=== PATIENT | male | born 1990 | race Caucasian/White ===

== ENCOUNTER 2024-01-16 14:38 | Inpatient (IN) | payer MEDICAID, SELFPAY ==
--- NOTE | ~2024-01-16 | XR_ITS ---
EXAMINATION: XR HAND, LEFT CLINICAL INFORMATION: Infected third finger COMPARISON: None available. TECHNIQUE: PA, lateral, and oblique views of the left hand. FINDINGS: Bone alignment is normal. No acute fracture, dislocation or x-ray evidence of osteomyelitis. Question evidence of old trauma of the distal radial metaphysis. Joint spaces are normal. There is diffuse soft tissue swelling of the third finger. No soft tissue foreign body or abnormal air collection seen. XR/XR hand LT 2V IMPRESSION: Soft tissue swelling of the third finger.
[2024-01-16 15:19] VITALS: BP 138/96; PULSE 74; RESP 16; TEMP 36.7; O2SAT 100; BMI 25.2
--- NOTE | 2024-01-16 15:20 | ED.GENADULT ---
HPI - General Adult General Chief complaint: Extremity Problem Stated complaint: Left Hand/middle finger infection Time Seen by Provider: 01/16/24 18:11 Source: patient Mode of arrival: ambulatory Limitations: no limitations History of Present Illness HPI narrative: 33-year-old male presents emergency department for evaluation of pain and swelling of his left middle finger and hand. The patient states that he does bite his nails and 3 days ago he noted swelling of the middle finger. He states that the swelling and pain is now spread to his hand. Patient states that 10 years ago he did have a similar infection of the left hand secondary to a MRSA infection. The patient states that he has had chills but no fever. He is felt weak and fatigued. He has had nausea with no vomiting. He states the pain in his middle finger is 10/10. The patient states he did pick pimples that around the back of his hand and pimples on his face as well. He denies injection drug use. Related Data Allergies Allergy/AdvReac Type Severity Reaction Status Date / Time No Known Allergies Allergy Verified 01/16/24 15:22 Review of Systems Review of Systems: Yes all other systems are reviewed and are negative [facility] Past Medical History [facility] Narrative: Past medical history: MRSA infection of the left hand 10 years prior, right thumb injury requiring surgical repair, multiple back surgeries L5-S1. Social history: He states that he vapes tobacco products. He does drink alcohol occasionally. He denies drug use. Social History Social History Smoked in Last 30 Days: No Use of substances other than those prescribed or required for medical reasons: No Advance Directives: No Advance Directives Information Provided: No Do you have a plan to hurt others: No Plan Physical Exam ED Vital Signs: Vital Signs - 24 hr 01/16/24 15:19 01/16/24 17:18 01/16/24 18:18 Temperature 98.1 F 98.1 F Pulse Rate 74 73 Respiratory Rate 16 16 20 Blood Pressure 138/96 H 144/102 H Pulse Oximetry 100 100 Oxygen Delivery Method Room Air Room Air 01/16/24 21:52 Temperature 98.0 F Pulse Rate 76 Respiratory Rate 18 Blood Pressure 135/86 Pulse Oximetry 98 Oxygen Delivery Method Room Air BMI result Body Mass Index 25.2 Vital signs were normal Exam: General: Awake, alert in no distress Head: Normocephalic, atraumatic, patient has several lesions on his face which look like skin picking EENT: PERRL, Lids normal, sclera normal, conjunctiva normal, nose normal , ears normal, throat without erythema or exudates Neck: Supple, no adenopathy Lung: breath sounds symmetric, no wheezing, rales or rhonchi Chest: symmetric movement, nontender Heart: regular rate and rhythm, normal S1, S2 no murmurs or rubs Abdomen: soft, non-tender, nondistended, normal bowel sounds Back: no vertebral tenderness, no CVAT Extremities: Patient has significant swelling of the left middle finger and finger pad concerning for possible felon, patient also has erythema increased warmth to the dorsal aspect of the hand with several lesions that look like skin picking. Neuro: Awake, alert, oriented, normal speech, cranial nerves intact, moves all extremities symmetrically Psych: Pleasant, cooperative Course Course Course Narrative: Patient is a 33-year-old male left-hand dominant who presents to the emergency department for evaluation. He reports hx MRSA, L middle finger requiring I&D reportedly due to biting nails that presented similarly to his hand currently. This is approximately 10 years ago. Reports reoccurrence of pain swelling to the left middle finger over the past week extending into the hand. Physical exam: Swelling to the dorsum of the left hand extending to the 3rd phalanx, has erythema surrounding the nail bed, discoloration to the distal tip and beneath the nail yellow/green. Scab/abrasions over the dorsum of the left hand, reports picking and wounds initially from injury with a door?. Denies recreational drug or alcohol usage. Plan: Labs, XR Medications Administered Discontinued Medications Generic Name Dose Route Start Last Admin Trade Name Merly PRN Reason Stop Dose Admin Acetaminophen 975 mg 01/16/24 20:20 01/16/24 20:24 Acetaminophen 325 Mg Tablet PO 01/16/24 20:21 975 mg ONCE ONE Administration Sodium Chloride 1,000 mls @ 999 mls/hr 01/16/24 18:12 01/16/24 19:32 Ns IV 01/16/24 19:12 Infused .Q1H1M STA Infusion Piperacillin Sod/Tazobactam 100 mls @ 200 mls/hr 01/16/24 19:02 01/16/24 20:17 Sod 4.5 gm/ Sodium Chloride IV 01/16/24 19:31 Infused ONCE ONE Infusion Vancomycin HCl 2,000 mg in 500 mls @ 250 mls/hr 01/16/24 19:02 01/16/24 20:20 Vancomycin/Ns IV 01/16/24 21:01 250 mls/hr ONCE ONE Administration Ketorolac Tromethamine 15 mg 01/16/24 18:12 01/16/24 18:17 Ketorolac Tromethamine 15 Mg/Ml Vial IVPUSH 01/16/24 18:13 15 mg ONCE STA Administration Morphine Sulfate 4 mg 01/16/24 18:12 01/16/24 18:18 Morphine Sulfate 4 Mg/Ml Cartridge IVPUSH 01/16/24 18:13 4 mg ONCE STA Administration Protocol Morphine Sulfate 4 mg 01/16/24 19:38 01/16/24 19:45 Morphine Sulfate 4 Mg/Ml Cartridge IVPUSH 01/16/24 19:39 4 mg ONCE STA Administration Protocol Medical Decision Making Medical Decision Making MDM Narrative: 33-year-old male presents emergency department for evaluation of pain and swelling of his left middle finger and hand. The patient states that he does bite his nails and 3 days ago he noted swelling of the middle finger. He states that the swelling and pain is now spread to his hand. Patient states that 10 years ago he did have a similar infection of the left hand secondary to a MRSA infection. The patient states that he has had chills but no fever. He is felt weak and fatigued. He has had nausea with no vomiting. He states the pain in his middle finger is 10/10. The patient states he did pick pimples that around the back of his hand and pimples on his face as well. He denies injection drug use. Vital signs were normal . Physical examination is concerning for cellulitis of the hand and fell onto the left middle finger Differential diagnosis: ?Includes but is not limited to felon, cellulitis of the hand, abscess of the hand, anemia, electrolyte abnormalities Following evaluation was ordered: CBC, CMP, CRP, ESR, blood cultures x2 Patient was initially treated with the following: Piperacillin 4.5 g IV, vancomycin 2000 mg IV, Toradol 15 mg IV, morphine 4 mg IV x2, acetaminophen 975 mg orally, left hand x-rays Course: 21:41 My independent interpretation patient's laboratory evaluation as follows: Elevated WBC 21608 with a normal differential. ESR was normal at 7. CRP slightly elevated at 0.77. CMP normal. Plain x-rays of the hand did not reveal any osteomyelitis, there is soft tissue swelling noted of the middle finger. 22:25 I did discuss the patient's presentation over tiger text with the orthopedic physician field administrative assistant, Daniella Santamaria who recommended admission to the hospitalist service for IV antibiotics and orthopedic consult in the morning I did discuss the patient's presentation over tiger text with the covering hospitalist, Dr. Durán and she will admit the patient for further management The patient continues to have persistent pain in his left hand and middle finger. He was ordered to get Dilaudid 1 mg IV. Admission/Observation Consideration of admission/observation: Escalation of care including admission/observation considered Consult Healthcare Provider Management of the patient was discussed with: Hospitalist and Band Splicer (Orthopedic physician field administrative assistant, Daniella Marin) Lab Data MDM Lab Attestation statement: I reviewed the patient's lab results. 01/16/24 16:23 01/16/24 16:23 Labs: Lab Results 01/16/24 Range/Units 16:23 WBC 11.7 H (4.8-10.8) X10*3/uL RBC 4.74 (4.60-5.80) X10*6/uL Hgb 13.9 L (14.0-18.0) g/dl Hct 39.8 L (42.0-52.0) % MCV 84.0 (80.0-98.0) fL MCH 29.3 (27.0-33.0) pg MCHC 34.9 (31.0-36.0) g/dl RDW 12.4 (11.0-16.0) % Plt Count 233 (160-400) X10*3/uL MPV 9.0 L (9.4-12.4) fL Immature Gran % (Auto) 0.3 (0.0-0.4) % Neut % (Auto) 69.0 (45-73) % Lymph % (Auto) 21.8 (20-40) % [place] % (Auto) 6.7 (2-11) % Eos % (Auto) 1.9 (0-4) % Baso % (Auto) 0.3 (0-2) % Lymph # (Auto) 2.5 (1.2-4.9) X10*3/uL [place] # (Auto) 0.8 (0.1-1.2) X10*3/uL Eos # (Auto) 0.2 (0.0-0.4) X10*3/uL Baso # (Auto) 0.0 (0.0-0.2) X10*3/uL Abs Immat Gran (auto) 0.04 H (0.00-0.03) X10*3/uL Absolute Neuts (auto) 8.0 (2.0-8.3) x10*3/uL Absolute Nucleated RBC 0.000 (0.0-0.012) X10*3/uL Nucleated RBC % (auto) 0.0 (0.0-0.2) /100WBC ESR 7 (0-15) MM/HR Sodium 143 (135-145) mmol/L Potassium 3.8 (3.3-5.1) mmol/L Chloride 109 H (96-108) mmol/L Carbon Dioxide 22 (22-29) mmol/L Anion Gap 16 (12-20) BUN 8 L (9-16) mg/dL Creatinine 0.67 (0.5-1.4) mg/dL Estim Creat Clear Calc 156.8 Estimated GFR > 60 Random Glucose 114 (60-115) mg/dL Calcium 9.3 (8.4-10.2) mg/dL Total Bilirubin 0.2 (0.0-1.0) mg/dL AST 13 (5-37) U/L ALT 12 (0-40) U/L Alkaline Phosphatase 63 (39-117) U/L C-Reactive Protein 0.77 H (< or = 0.50) mg/dL Total Protein 6.3 L (6.5-8.0) g/dL Albumin 3.7 (3.5-5.0) g/dL Independent Interpretation I performed an independent interpretation of an: Plain X-Ray Interpretation: My independent interpretation patient's left hand x-ray is as follows: Soft tissue swelling noted that 3rd finger, no osteomyelitis Radiology Impression Discussion of test interpretation with radiology: I have reviewed the radiologist's reading. Radiologist Impression: XR hand LT 2V IMPRESSION: Soft tissue swelling of the third finger. Dictated By: Patria Khalil MD Independent Historian Clinical information obtained from an independent historian. History obtained from or confirmed by: Other (Fiancee) Chronic Conditions Patient?s care impacted by: Other (MRSA infection in the past) Discharge Plan Discharge Patient Disposition: Admitted As Inpatient Print Language: Czech
[2024-01-16 16:28] LABS: MANUAL DIFF FLAG NO
[2024-01-16 16:30] LABS: Basophils Percent Auto 0.3 % (0-2); Eosinophils Absolute Auto 0.2 X10*3/uL (0.0-0.4); Eosinophils Percent Auto 1.9 % (0-4); Hematocrit 39.8 % (42.0-52.0); Hemoglobin 13.9 g/dl (14.0-18.0); Imm Gran Abs Auto 0.04 X10*3/uL (0.00-0.03); Imm Gran Pct Auto 0.3 % (0.0-0.4); Lymphocytes Absolute Auto 2.5 X10*3/uL (1.2-4.9); Lymphocytes Percent Auto 21.8 % (20-40); Mean Corpuscular HGB Conc 34.9 g/dl (31.0-36.0); Mean Corpuscular Hemoglobin 29.3 pg (27.0-33.0); Monocytes Absolute Auto 0.8 X10*3/uL (0.1-1.2); Monocytes Percent Auto 6.7 % (2-11); Platelet Count 233 X10*3/uL (160-400); Red Blood Count 4.74 X10*6/uL (4.60-5.80); Red Cell Distribution Width 12.4 % (11.0-16.0); White Blood Count 11.7 X10*3/uL (4.8-10.8)
[2024-01-16 16:43] LABS: Alanine Aminotransferase 12 U/L (0-40); Albumin Level 3.7 g/dL (3.5-5.0); Alkaline Phosphatase 63 U/L (39-117); Anion Gap 16 (12-20); Aspartate Amino Transferase 13 U/L (5-37); Bilirubin Total 0.2 mg/dL (0.0-1.0); Blood Urea Nitrogen 8 mg/dL (9-16); C Reactive Protein 0.77 mg/dL (< or = 0.50); Calcium 9.3 mg/dL (8.4-10.2); Carbon Dioxide 22 mmol/L (22-29); Chloride 109 mmol/L (96-108); Creatinine Clr Calc Pharmacy 156.8; Estimated Glomerular Filt Rate > 60; Glucose Random 114 mg/dL (60-115); Potassium 3.8 mmol/L (3.3-5.1); Sodium 143 mmol/L (135-145); Total Protein 6.3 g/dL (6.5-8.0)
[2024-01-16 17:18] VITALS: BP 144/102; PULSE 73; RESP 16; TEMP 36.7; O2SAT 100
--- NOTE | 2024-01-16 17:21 | PC.NURSE ---
Pt presents to ED from home. Reports swelling pain and redness starting at the left middle finger radiating up his hand. Symptoms X2 days, worsening significantly. Pt does bite his nails, has hx of MRSA infection in that hand. Pt reports pain is 10/10 in left hand. Left hand noted to be swollen and red, area of blue/black around finger nail of middle finger. Pt denies nausea, vomiting, SOB, CP. Does report chills and diarrhea. Alert and oriented, breathing even and unlabored, skin warm and dry. VSS.
[2024-01-16 17:23] LABS: Erythrocyte Sedimentation Rate 7 MM/HR (0-15)
[2024-01-16] MEDS: Ketorolac Tromethamine 15 MG/ML VIAL IVPUSH (18:17)
[2024-01-16 18:18] VITALS: RESP 20
[2024-01-16] MEDS: Morphine Sulfate 4 MG/ML CARTRIDGE IVPUSH ×2 (18:18→19:45)
[2024-01-16] MEDS: 0.9 % Sodium Chloride 1,000 ML 999 ML IV (18:22)
--- NOTE | 2024-01-16 18:36 | PC.NURSE ---
Pt medicated per MAR for significant pain, pt was noted to be in obvious discomfort. Pt now resting and feeling better after pain meds.
[2024-01-16] MEDS: Piperacillin Sodium/Tazobactam 4.5 GM in 0.9 % Sodium Chloride 100 ML IV (19:42)
[2024-01-16] MEDS: vancomycin/NS 2,000 MG/500 ML PLAST..BAG 250 MG IV (20:20)
[2024-01-16] MEDS: Acetaminophen 325 MG TABLET 975 MG PO (20:24)
[2024-01-16 21:52] VITALS: BP 135/86; PULSE 76; RESP 18; TEMP 36.7; O2SAT 98
--- NOTE | 2024-01-16 22:58 | P.HPHOSP_ITS ---
History of Present Illness Date of Service: 01/16/24 Attending physician on admission: Lizeth Aquino Chief Complaint: Left 3rd finger pain and swelling Gurdeep Acuña is a 33 years old man presents to the ED complaining of 3 days history of worsening swelling to his left 3rd finger associated with left hand swelling and pain. He does bite his nails and was picking a pimples to the back aspect of his left hand. Denies associated chills, fever or nausea. He had a similar episode about 10 years ago requiring IV antibiotics. The infection was related to MRSA. He did not report any headache, dizziness or generalized weakness. He did not report any acute cardiopulmonary, gastrointestinal or genitourinary symptoms. Denied alcohol abuse or illicit drug use. In the ED, he was found to have normal vital signs. Blood workup showed within leukocytosis of 11.7. CRP is elevated, 0.77. Hemoglobin and platelets are basically normal. There are no significant electrolyte imbalances. Renal function is normal as well as LFTs. Left hand x-ray showed soft tissue swelling around the left 3rd digit. ED tx: Morphine 8 mg IV (total) Jorden 50 mg IV, vancomycin 2 g IV, Zosyn 4.5 mg IV, acetaminophen 975 mg PO. Review of Systems 2 Review of Systems: All 12 systems were reviewed and normal except as noted in HPI. PMFSH Social History Smoked in Last 30 Days: No Use of substances other than those prescribed or required for medical reasons: No Advance Directives: No Advance Directives Information Provided: No Do you have a plan to hurt others: No Plan Meds Allergies Allergy/AdvReac Type Severity Reaction Status Date / Time No Known Allergies Allergy Verified 01/16/24 15:22 Active Medications: Current Medications Acetaminophen (Acetaminophen 325 Mg Tablet) 975 mg PO Q6H PRN PRN Reason: mild pain, headache or fever Hydromorphone HCl (Hydromorphone Hcl 1 Mg/Ml Syringe) 1 mg IVPUSH Q4H PRN; Protocol PRN Reason: Pain, Severe (Pain Scale 7-10) Ketorolac Tromethamine (Ketorolac Tromethamine 30 Mg/Ml Vial) 30 mg IVPUSH Q8H [facility]INE Stop: 01/17/24 07:01 Magnesium Hydroxide (Milk Of Magnesia 30 Ml Oral.Susp) 30 ml PO DAILY PRN PRN Reason: Constipation Melatonin (Melatonin 3 Mg Tablet) 6 mg PO BEDTIME PRN PRN Reason: Insomnia Oxycodone HCl (Oxycodone Hcl Immed Release 5 Mg Tablet) 5 mg PO Q6H PRN PRN Reason: Pain, Moderate(Pain Scale 4-6) Pharmacy Consult (Consult Rx Vancomycin Dosing) 1 each MISCELLANE DAILY PRN PRN Reason: Consult order Senna (Sennosides 8.6 Mg Tablet) 17.2 mg PO BEDTIME PRN PRN Reason: Constipation Sodium Chloride (0.9 % Sodium Chloride Flush 3 Ml Syringe) 3 ml IVFLUSH QSHIFT [facility] Physical Exam 2 Vital Signs and Narrative: Vital Signs: Last Vital Signs Temp 98.0 F 01/16/24 21:52 Pulse 76 01/16/24 21:52 Resp 18 01/16/24 21:52 BP 135/86 01/16/24 21:52 Pulse Ox 98 01/16/24 21:52 O2 Del Method Room Air 01/16/24 21:52 BMI result Body Mass Index 25.2 Constitutional - Awake and Alert, No apparent distress. Girlfriend at bedside. HEENT - pupils equally round. Normal sclerae. Abrasion noted over left eyebrow. Heart - S1S2, RRR, No edema Lungs - Normal lung expansion, Normal respiratory effort, No respiratory distress, CTA bilaterally Gastrointestinal - deferred. 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 Skin - Warm/Dry Neurological - Alert & oriented x3. No focal weakness grossly noted. Normal speech. Psychological - Appropriate affect Results Labs 01/16/24 16:23 01/16/24 16:23 Labs: Laboratory Results - last 24 hr 01/16/24 16:23 MCV 84.0 MCH 29.3 MCHC 34.9 RDW 12.4 Plt Count 233 MPV 9.0 L Immature Gran % (Auto) 0.3 Neut % (Auto) 69.0 Lymph % (Auto) 21.8 [place] % (Auto) 6.7 Eos % (Auto) 1.9 Baso % (Auto) 0.3 Lymph # (Auto) 2.5 [place] # (Auto) 0.8 Eos # (Auto) 0.2 Baso # (Auto) 0.0 Abs Immat Gran (auto) 0.04 H Absolute Neuts (auto) 8.0 Absolute Nucleated RBC 0.000 Nucleated RBC % (auto) 0.0 ESR 7 Anion Gap 16 Estim Creat Clear Calc 156.8 Estimated GFR > 60 Random Glucose 114 Calcium 9.3 Total Bilirubin 0.2 AST 13 ALT 12 Alkaline Phosphatase 63 C-Reactive Protein 0.77 H Total Protein 6.3 L Albumin 3.7 Imaging Radiologist's Impressions: Impressions Hand X-Ray 01/16/24 15:37 IMPRESSION: Soft tissue swelling of the third finger. Assessment and Plan (1) Cellulitis of left middle finger: Status: Acute (2) Paronychia of finger: Qualifiers: Laterality: left Qualified Code(s): L03.012 - Cellulitis of left finger Status: Acute Plan Gurdeep Acuña is a 33 years old man admitted with: * Left 3rd finger paronychia associated with cellulitis extending to the dorsum of the left hand, no sepsis criteria. Admit to hospitalist service. Continue empiric IV antibiotic therapy with doxycycline. Apply triple antibiotic bid. Elevate extremity. Apply ice. Patient educated to avoid nail biting. Pain control with Dilaudid or oxycodone as needed. Toradol 30 mg q8h X2. MRSA nasal screen. Ortho consult (contacted by ED). 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 Patient will also need evaluation by Orthopedic surgery for possible drainage. Quality Stroke Does the patient have a stroke diagnosis?: No VTE Prior VTE?: No VTE Risk Level:: Medical - moderate - high VTE Device Contraindication: Treatment Not Indicated VTE Drug Contraindication: Treatment Not Indicated
[2024-01-16] MEDS: Ketorolac Tromethamine 30 MG/ML VIAL IVPUSH (23:31)
[2024-01-16] MEDS: HYDROmorphone HCl 1 MG/ML SYRINGE IVPUSH (23:32)
[2024-01-17] MEDS: 0.9 % Sodium Chloride Flush 3 ML SYRINGE IVFLUSH ×4 (01:40→20:46)
[2024-01-17] MEDS: HYDROmorphone HCl 1 MG/ML SYRINGE IVPUSH ×4 (03:27→21:00)
[2024-01-17 05:27] LABS: MANUAL DIFF FLAG NO
[2024-01-17 05:29] LABS: Basophils Absolute Auto 0.1 X10*3/uL (0.0-0.2); Basophils Percent Auto 0.4 % (0-2); Eosinophils Absolute Auto 0.3 X10*3/uL (0.0-0.4); Eosinophils Percent Auto 2.2 % (0-4); Hemoglobin 13.4 g/dl (14.0-18.0); Imm Gran Abs Auto 0.04 X10*3/uL (0.00-0.03); Imm Gran Pct Auto 0.3 % (0.0-0.4); Lymphocytes Absolute Auto 2.4 X10*3/uL (1.2-4.9); Lymphocytes Percent Auto 20.6 % (20-40); Mean Corpuscular HGB Conc 33.5 g/dl (31.0-36.0); Mean Corpuscular Hemoglobin 28.9 pg (27.0-33.0); Mean Corpuscular Volume 86.4 fL (80.0-98.0); Mean Platelet Volume 9.3 fL (9.4-12.4); Monocytes Percent Auto 8.6 % (2-11); Neutrophils Percent Auto 67.9 % (45-73); Platelet Count 229 X10*3/uL (160-400); Red Blood Count 4.63 X10*6/uL (4.60-5.80); Red Cell Distribution Width 12.6 % (11.0-16.0); White Blood Count 11.7 X10*3/uL (4.8-10.8)
[2024-01-17 05:46] LABS: Anion Gap 15 (12-20); Blood Urea Nitrogen 8 mg/dL (9-16); Calcium 8.7 mg/dL (8.4-10.2); Carbon Dioxide 23 mmol/L (22-29); Chloride 109 mmol/L (96-108); Creatinine Clr Calc Pharmacy 129.7; Estimated Glomerular Filt Rate > 60; Glucose Random 96 mg/dL (60-115); Sodium 143 mmol/L (135-145)
[2024-01-17] MEDS: oxyCODONE HCl Immed Release 5 MG TABLET PO (06:24)
[2024-01-17 08:03] VITALS: BP 131/68; PULSE 83; RESP 14; O2SAT 96
[2024-01-17 08:07] VITALS: BP 138/89; PULSE 107; RESP 18; TEMP 36.8; O2SAT 99
[2024-01-17] MEDS: Ketorolac Tromethamine 30 MG/ML VIAL IVPUSH (08:10)
[2024-01-17] MEDS: NeoMY/Polymyx/Bacit/Ointment 14 GM Tube TOPICAL ×2 (08:11→20:42)
--- NOTE | 2024-01-17 08:20 | HO.SKINPHOTO ---
Location: Category: Stage: Left third digit Length: Width: Depth: cm Location: Category: Stage: Length: Width: Depth: cm Location: Category: Stage: Length: Width: Depth: cm Location: Category: Stage: Length: Width: Depth: cm Location: Category: Stage: Length: Width: Depth: cm Location: Category: Stage: Length: Width: Depth: cm
--- NOTE | 2024-01-17 08:43 | HO.PM.IMPN ---
Subjective Subjective Date of Service: 01/17/24 Interval History: left hand-3rd finger paronychia /hand cellulitis Review of Systems has significant pain ,hand cellulitis seems similar no fevers Physical Exam Vital Signs: Vital Signs: Last Vital Signs Temp 98.3 F 01/17/24 08:07 Pulse 107 H 01/17/24 08:07 Resp 18 01/17/24 08:07 BP 138/89 01/17/24 08:07 Pulse Ox 99 01/17/24 08:07 O2 Del Method Room Air 01/17/24 08:07 BMI result Body Mass Index 25.2 Appearance: Alert.? Oriented X3.? . cvs: rrr, [id number] , no murmur res: clear to auscultation ,no rhonchii or wheezing abd: no rebound or guarding ,nt, bs present. ext pulses present , no cyanosis . left hand -pain /paronychia and skin changes similar neuro: axo3 , nonfocal. Objective Data Active Medications Acetaminophen (Acetaminophen 325 Mg Tablet) 975 mg PO Q6H PRN PRN Reason: mild pain, headache or fever Hydromorphone HCl (Hydromorphone Hcl 1 Mg/Ml Syringe) 1 mg IVPUSH Q4H PRN; Protocol PRN Reason: Pain, Severe (Pain Scale 7-10) Last Admin: 01/17/24 03:27 Dose: 1 mg Documented By: LORNA Doxycycline Hyclate 100 mg/ (Sodium Chloride) 250 mls @ 166.67 mls/hr IV Q12H [facility] Magnesium Hydroxide (Milk Of Magnesia 30 Ml Oral.Susp) 30 ml PO DAILY PRN PRN Reason: Constipation Melatonin (Melatonin 3 Mg Tablet) 6 mg PO BEDTIME PRN PRN Reason: Insomnia Neomycin/Polymyxin/Bacitracin (Neomy/Polymyx/Bacit/Ointment 14 Gm Tube) 1 gm TOPICAL BID DIVINE; Protocol Last Admin: 01/17/24 08:11 Dose: 1 gm Documented By: SHRUTHI Oxycodone HCl (Oxycodone Hcl Immed Release 5 Mg Tablet) 5 mg PO Q6H PRN PRN Reason: Pain, Moderate(Pain Scale 4-6) Last Admin: 01/17/24 06:24 Dose: 5 mg Documented By: LORNA Senna (Sennosides 8.6 Mg Tablet) 17.2 mg PO BEDTIME PRN PRN Reason: Constipation Sodium Chloride (0.9 % Sodium Chloride Flush 3 Ml Syringe) 3 ml IVFLUSH QSHIFT [facility] Last Admin: 01/17/24 08:11 Dose: 3 ml Documented By: SHRUTHI Labs 01/17/24 04:38 01/17/24 04:38 Labs: Laboratory Results - last 24 hr 01/16/24 01/17/24 16:23 04:38 MCV 84.0 86.4 MCH 29.3 28.9 MCHC 34.9 33.5 RDW 12.4 12.6 Plt Count 233 229 MPV 9.0 L 9.3 L Immature Gran % (Auto) 0.3 0.3 Neut % (Auto) 69.0 67.9 Lymph % (Auto) 21.8 20.6 [place] % (Auto) 6.7 8.6 Eos % (Auto) 1.9 2.2 Baso % (Auto) 0.3 0.4 Lymph # (Auto) 2.5 2.4 [place] # (Auto) 0.8 1.0 Eos # (Auto) 0.2 0.3 Baso # (Auto) 0.0 0.1 Abs Immat Gran (auto) 0.04 H 0.04 H Absolute Neuts (auto) 8.0 8.0 Absolute Nucleated RBC 0.000 0.000 Nucleated RBC % (auto) 0.0 0.0 ESR 7 Anion Gap 16 15 Estim Creat Clear Calc 156.8 129.7 Estimated GFR > 60 > 60 Random Glucose 114 96 Calcium 9.3 8.7 D Total Bilirubin 0.2 AST 13 ALT 12 Alkaline Phosphatase 63 C-Reactive Protein 0.77 H Total Protein 6.3 L Albumin 3.7 Assessment and Plan (1) Paronychia of finger: Status: Acute Plan d-2: 33 years old man admitted with: Left 3rd finger paronychia associated with cellulitis : extending to the dorsum of the left hand, no sepsis criteria. considering paronychia /hand cellulitis - added vanco/zosyn, Apply triple antibiotic bid. Elevate extremity. Apply ice. Patient educated to avoid nail biting. Pain control with Dilaudid or oxycodone as needed,Toradol, MRSA nasal screen. Ortho consult (contacted by ED). dvt prophylax: low risk,ambulate . 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 Quality Stroke Does the patient have a stroke diagnosis?: No VTE Prior VTE?: No VTE Risk Level:: Medical - moderate - high VTE Device Contraindication: Treatment Not Indicated VTE Drug Contraindication: Treatment Not Indicated
--- NOTE | 2024-01-17 09:02 | PHA.PROG ---
Admission Date/Time: January 16, 2024 22:50 Indication: skin Weight in k.564 kg Adjusted body weight in Kg: Brickeys body weight in Kg: Obesity Dosing Indication % IBW: Serum Creatinine - Last 168 Hours 01/16/24 01/17/24 16:23 04:38 Creatinine 0.67 0.81 Estimated CrCl and GFR - Last 168 Hours 01/16/24 01/17/24 16:23 04:38 Estim Creat Clear Calc 156.8 129.7 Estimated GFR > 60 > 60 Vancomycin Loading Dose: 2000mg x 1 Current Vancomycin Dosing Regimen: 1250mg Q12H Vancomycin Monitoring using AUC goal of 400 - 600 range with trough as surrogate marker: 484 mg/L Date and Time for next Vancomycin Level to be drawn: 01/18/24 @0700 Pharmacist Comments on Vancomycin Plan: Predicted trough of 14mg/L; will continue to monitor Vancomycin dosing will take advantage of [employer] as a clinical decision support tool that uses Bayesian modeling to calculate individual patient's pharmacokinetic parameters and forecast the patient's drug concentration time course with the target goal AUC 24 range of 400 - 600 mg/L/hr.
[2024-01-17 09:39] VITALS: BP 155/95; PULSE 85; RESP 16; TEMP 36.9; O2SAT 98
[2024-01-17] MEDS: vancomycin HCL 1,250 MG in 0.9 % Sodium Chloride 250 ML 166.67 MG IV ×2 (09:43→21:04)
[2024-01-17 10:20] VITALS: RESP 16
--- NOTE | 2024-01-17 10:38 | PM.CNOR ---
History of Present Illness HPI Consult date: 01/17/24 Chief complaint: left hand cellulitis Narrative: Mr. Acuña is a 33yo left hand dominant male who presented to the ED yesterday evening after three days of swelling and pain surrounding the left middle finger nail bed and an area of redness and pain on the dorsal side of the hand. He has multiple small areas of scabbing on the dorsal part of the hand that he reports is from putting his hand through a glass window. In addition he believes the infection around the nail bed of the middle finger is because he has a nail bitting habit with anxiety. He denies any treatment prior to presenting to the ED. He was admitted to the medicine service with orthopedic consult. Review of Systems Review of Systems: Yes all other systems are reviewed and are negative [facility] Social History Social History Patient Tobacco Use Status: Current everyday Tobacco user Meds Allergies Allergy/AdvReac Type Severity Reaction Status Date / Time No Known Allergies Allergy Verified 01/16/24 15:22 Active Medications: Current Medications Acetaminophen (Acetaminophen 325 Mg Tablet) 975 mg PO Q6H PRN PRN Reason: mild pain, headache or fever Hydromorphone HCl (Hydromorphone Hcl 1 Mg/Ml Syringe) 1 mg IVPUSH Q4H PRN; Protocol PRN Reason: Pain, Severe (Pain Scale 7-10) Last Admin: 01/17/24 03:27 Dose: 1 mg Vancomycin HCl 1,250 mg/ (Sodium Chloride) 250 mls @ 166.667 mls/hr IV Q12H [facility] Last Admin: 01/17/24 09:43 Dose: 166.67 mls/hr Piperacillin Sod/Tazobactam (Sod 3.375 gm/ Sodium Chloride) 50 mls @ 100 mls/hr IV Q6H [facility] Magnesium Hydroxide (Milk Of Magnesia 30 Ml Oral.Susp) 30 ml PO DAILY PRN PRN Reason: Constipation Melatonin (Melatonin 3 Mg Tablet) 6 mg PO BEDTIME PRN PRN Reason: Insomnia Neomycin/Polymyxin/Bacitracin (Neomy/Polymyx/Bacit/Ointment 14 Gm Tube) 1 gm TOPICAL BID [facility]; Protocol Last Admin: 01/17/24 08:11 Dose: 1 gm Oxycodone HCl (Oxycodone Hcl Immed Release 5 Mg Tablet) 5 mg PO Q6H PRN PRN Reason: Pain, Moderate(Pain Scale 4-6) Last Admin: 01/17/24 06:24 Dose: 5 mg Pharmacy Consult (Consult Rx Vancomycin Dosing) 1 each MISCELLANE DAILY PRN PRN Reason: Consult order Senna (Sennosides 8.6 Mg Tablet) 17.2 mg PO BEDTIME PRN PRN Reason: Constipation Sodium Chloride (0.9 % Sodium Chloride Flush 3 Ml Syringe) 3 ml IVFLUSH QSHIFT [facility] Last Admin: 01/17/24 08:11 Dose: 3 ml Physical Exam Vital Signs: Vital Signs: Last Vital Signs Temp 98.5 F 01/17/24 09:39 Pulse 85 01/17/24 09:39 Resp 16 01/17/24 09:39 BP 155/95 H 01/17/24 09:39 Pulse Ox 98 01/17/24 09:39 O2 Del Method Room Air 01/17/24 09:39 BMI result Body Mass Index 25.2 Const: General: cooperative, healthy appearing and no acute distress Resp: Effort & Inspection: normal respiratory effort and able to speak in complete sentences Cardio: Rate: regular rate Peripheral pulses: Peripheral pulses 2+ throughout GI: Palpation (GI): Soft to palpation Skin: Lesions: no lesions Rashes: no rashes Extrem: Other: Left dorsal hand has about six scattered small areas of eschar tissue. One area of flucuance surrounded by erythema at the midline of the third metacarpal. Paronychia noted at the middle finger. No active drainage. Able to make a full fist. Sensation is reportedly intact. Capillary refill is brisk. Results Labs 01/17/24 04:38 01/17/24 04:38 Labs: Abnormal lab results 01/16/24 01/17/24 Range/Units 16:23 04:38 WBC 11.7 H 11.7 H (4.8-10.8) X10*3/uL Hgb 13.9 L 13.4 L (14.0-18.0) g/dl Hct 39.8 L 40.0 L (42.0-52.0) % MPV 9.0 L 9.3 L (9.4-12.4) fL Abs Immat Gran (auto) 0.04 H 0.04 H (0.00-0.03) X10*3/uL Chloride 109 H 109 H (96-108) mmol/L BUN 8 L 8 L (9-16) mg/dL C-Reactive Protein 0.77 H (< or = 0.50) mg/dL Total Protein 6.3 L (6.5-8.0) g/dL H & H 01/16/24 01/17/24 Range/Units 16:23 04:38 Hgb 13.9 L 13.4 L (14.0-18.0) g/dl Hct 39.8 L 40.0 L (42.0-52.0) % All other labs normal. Assessment and Plan (1) Paronychia of finger: Qualifiers: Laterality: left Qualified Code(s): L03.012 - Cellulitis of left finger Status: Acute Case reviewed with Dr. Izaguirre Continue IV abx Gentle ROM warm salt water soaks X-rays reviewed negative for any fracture/dislocation (2) Cellulitis of left middle finger: Status: Acute (3) Cellulitis of finger of left hand: Status: Acute Procedures Date of Service Date of Service: 01/17/24
--- NOTE | 2024-01-17 10:47 | PHA.MEDREC ---
Pharmacy Consult ? Medication Reconciliation Pharmacy has completed the medication reconciliation. Patient is not on any prescriptions, and only take Aleve prn for pain.
[2024-01-17 10:53] LABS: MRSA Nasal PCR POSITIVE (Negative); SA Nasal PCR POSITIVE (Negative)
--- NOTE | 2024-01-17 11:50 | MHC.CM.PN ---
CM MET WITH PT AT BEDSIDE. PT LIVES WITH A FRIEND IN [place] INDEPENDENT AT BASELINE. WILL COMPLETE HCP. PCP FROM [facility], FRANCIS NAME. DP: HOME, NO SERVICES ANTICIPATED. PT HAS OWN RIDE HOME. CM WILL CONTINUE TO FOLLOW FOR ANY CHANGE TO DC PLAN.
[2024-01-17] MEDS: Piperacillin Sodium/Tazobactam 3.375 GM in 0.9 % Sodium Chloride 50 ML IV ×2 (11:52→17:02)
[2024-01-17 16:22] VITALS: BP 136/82; PULSE 95; RESP 20; TEMP 37; O2SAT 98
[2024-01-17] MEDS: Calcium Carbonate 750 MG TAB.CHEW PO (17:25)
[2024-01-17 19:05] VITALS: BP 144/90; PULSE 103; RESP 20; TEMP 37.1; O2SAT 98
[2024-01-18] VITALS (12 sets, daily range): BP systolic 114–147; BP diastolic 58–88; PULSE 68–97; RESP 12–18; TEMP 36.2–36.5; O2SAT 97–100
[2024-01-18] MEDS: Piperacillin Sodium/Tazobactam 3.375 GM in 0.9 % Sodium Chloride 50 ML IV ×4 (00:06→19:08)
[2024-01-18 07:18] LABS: Vancomycin Trough 8.1 mcg/mL (10.0-20.0)
[2024-01-18 07:19] LABS: Creatinine Clr Calc Pharmacy 141.9; Estimated Glomerular Filt Rate > 60
--- NOTE | 2024-01-18 07:29 | HE.PHANOTE ---
Re: Barbie Patient's renal function is stable. Troguh returned at 8.1. Continue current regimen of 1250mg Q12H. Predicted AUC 497mg/L and predicted trough 14.8 mg/L. Next trough 01/18 at 1900.
[2024-01-18] MEDS: 0.9 % Sodium Chloride Flush 3 ML SYRINGE IVFLUSH ×3 (08:16→23:42)
[2024-01-18] MEDS: vancomycin HCL 1,250 MG in 0.9 % Sodium Chloride 250 ML 166.66 MG IV ×2 (08:16→20:41)
[2024-01-18] MEDS: HYDROmorphone HCl 1 MG/ML SYRINGE IVPUSH ×4 (08:59→23:34)
--- NOTE | 2024-01-18 09:38 | PM.EVENT ---
Event Note Date of Service: 01/18/24 Event Note: -pt npo for OR today with Dr Izaguirre Time Spent With Patient Time: Total time managing care of this patient today ____ minutes.
--- NOTE | 2024-01-18 12:42 | HO.WOUND ---
Wound Consult: Initial 33yr old?Male admitted to [facility] on 01/15 - See progress notes and H&P for detailed history.? Wound consult placed for Left 3rd finger wound.? Patient agreeable to assessment and photo documentation.? Patient reports he is set to go to OR today for debridement with surgical team. The left middle finger along with the dorsal side of hand are noted for red erythema and tenderness. Swelling noted throughout - pt and sign other at bedside report improvement in swelling since ABX have been initiated. The dorsal site is red and noted for a slight fluctuant pocket - concern for abscess site. No drainage noted. The middle finger was assessed - no drainage noted however crusting noted along the cuticle line. Patient reported he tried a dressing yesterday but was not able to tolerate it at this time. I advised a snug dressing will likely provide comfort - he reports he will consider later today after he soaks his hand. Topical recommendations provided by ortho team for soaks and triple abx ointment. Will defer to them to topical care however if MRSA is suspected I would suggest switching topical antibiotic ointment to Mupirocin. Will TT to provider with topical recommendation. Will defer to Ortho Surgical team for topical recommendations made in their note. Re-consult wound care Nurse for wound deterioration or wound changes
--- NOTE | 2024-01-18 13:41 | P.PNIM_ITS ---
Subjective Subjective Date of Service: 01/18/24 Interval History: f/u on cellulitis of the finger, abscess has some pain, and some drainage Physical Exam 2 Vital Signs: Vital Signs: Last Vital Signs Temp 97.2 F 01/18/24 08:08 Pulse 68 01/18/24 08:08 Resp 12 01/18/24 08:08 BP 142/66 H 01/18/24 08:08 Pulse Ox 99 01/18/24 08:08 O2 Del Method Room Air 01/18/24 08:08 BMI result Body Mass Index 25.2 Const: Other: General: AO X 3, no acute distress Resp: CTA bilateral CVS: S1,S2,RRR GI: +BS, NT, no distention Skin: Neuro: motor grossly intact Psych: appropriate affect Objective Data Active Medications Acetaminophen (Acetaminophen 325 Mg Tablet) 975 mg PO Q6H PRN PRN Reason: mild pain, headache or fever Calcium Carbonate (Calcium Carbonate 750 Mg Tab.Chew) 750 mg PO Q4H PRN PRN Reason: Dyspepsia Last Admin: 01/17/24 17:25 Dose: 750 mg Documented By: HELDER Hydromorphone HCl (Hydromorphone Hcl 1 Mg/Ml Syringe) 1 mg IVPUSH Q4H PRN; Protocol PRN Reason: Pain, Severe (Pain Scale 7-10) Last Admin: 01/18/24 13:28 Dose: 1 mg Documented By: AFSHIN Vancomycin HCl 1,250 mg/ (Sodium Chloride) 250 mls @ 166.667 mls/hr IV Q12H [facility] Last Infusion: 01/18/24 09:54 Dose: Infused Documented By: AFSHIN Piperacillin Sod/Tazobactam (Sod 3.375 gm/ Sodium Chloride) 50 mls @ 100 mls/hr IV Q6H [facility] Last Infusion: 01/18/24 12:09 Dose: Infused Documented By: AFSHIN Magnesium Hydroxide (Milk Of Magnesia 30 Ml Oral.Susp) 30 ml PO DAILY PRN PRN Reason: Constipation Melatonin (Melatonin 3 Mg Tablet) 6 mg PO BEDTIME PRN PRN Reason: Insomnia Neomycin/Polymyxin/Bacitracin (Neomy/Polymyx/Bacit/Ointment 14 Gm Tube) 1 gm TOPICAL BID [facility]; Protocol Last Admin: 01/18/24 10:29 Dose: Not Given Documented By: AFSHIN Non-Admin Reason: Patient Refused Oxycodone HCl (Oxycodone Hcl Immed Release 5 Mg Tablet) 5 mg PO Q6H PRN PRN Reason: Pain, Moderate(Pain Scale 4-6) Last Admin: 01/17/24 06:24 Dose: 5 mg Documented By: LORNA Pharmacy Consult (Consult Rx Vancomycin Dosing) 1 each MISCELLANE DAILY PRN PRN Reason: Consult order Senna (Sennosides 8.6 Mg Tablet) 17.2 mg PO BEDTIME PRN PRN Reason: Constipation Sodium Chloride (0.9 % Sodium Chloride Flush 3 Ml Syringe) 3 ml IVFLUSH QSHIFT [facility] Last Admin: 01/18/24 08:16 Dose: 3 ml Documented By: AFSHIN Labs 01/17/24 04:38 01/18/24 06:56 Labs: Laboratory Results - last 24 hr 01/18/24 06:56 Hold Purple Top SEE NOTE Estim Creat Clear Calc 141.9 Estimated GFR > 60 Vancomycin Trough 8.1 L Microbiology Microbiology Results: Microbiology 01/16/24 19:41 Blood Culture - Preliminary Blood - Venous No growth after 24 hours. 01/16/24 18:51 Blood Culture - Preliminary Blood - Venous No growth after 24 hours. Assessment and Plan (1) Paronychia of finger: Status: Acute Plan 33 years old man admitted with: Left 3rd finger paronychia associated with abscess and cellulitis, cultures negative. +MRSA and Staph screen in nose -Continue Zosyn and Vanco -I and D in OR today dvt prophylax: low risk,ambulate . need for inpatient: IV Abx for cellulitis and abscess and need for surgical drainage Quality Stroke Does the patient have a stroke diagnosis?: No VTE Prior VTE?: No VTE Risk Level:: Medical - moderate - high VTE Device Contraindication: Treatment Not Indicated VTE Drug Contraindication: Treatment Not Indicated
--- NOTE | 2024-01-18 16:53 | HO.ANESPROP2 ---
HPI - Anesthesia Eval Consult details Narrative: 33 M for i&d [facility] Active Problems Active Problems: All Active Problems Paronychia of finger (Acute) Cellulitis of left middle finger (Acute) Cellulitis of finger of left hand (Acute) Past Medical History Medical History Hx of gastroesophageal reflux (GERD) History of diverticulitis Family History Family history of problems with anesthesia: No Surgical History Surgical History Hx of wisdom tooth extraction Hx of hand surgery History of back surgery History of Problems with Anesthesia: No Social History Social History Household Members: Significant Other Housing: Apartment Do you presently have visiting nurse or other home services: No Patient Tobacco Use Status: Current everyday Tobacco user e-Cigarette/Vaping Use: Currently Using Substance Use Type: Marijuana service: No Meds Allergies Allergy/AdvReac Type Severity Reaction Status Date / Time No Known Allergies Allergy Verified 01/16/24 15:22 Active Medications: Current Medications Acetaminophen (Acetaminophen 325 Mg Tablet) 975 mg PO Q6H PRN PRN Reason: mild pain, headache or fever Calcium Carbonate (Calcium Carbonate 750 Mg Tab.Chew) 750 mg PO Q4H PRN PRN Reason: Dyspepsia Last Admin: 01/17/24 17:25 Dose: 750 mg Hydromorphone HCl (Hydromorphone Hcl 1 Mg/Ml Syringe) 1 mg IVPUSH Q4H PRN; Protocol PRN Reason: Pain, Severe (Pain Scale 7-10) Last Admin: 01/18/24 13:28 Dose: 1 mg Vancomycin HCl 1,250 mg/ (Sodium Chloride) 250 mls @ 166.667 mls/hr IV Q12H [facility] Last Infusion: 01/18/24 09:54 Dose: Infused Piperacillin Sod/Tazobactam (Sod 3.375 gm/ Sodium Chloride) 50 mls @ 100 mls/hr IV Q6H [facility] Last Infusion: 01/18/24 12:09 Dose: Infused Magnesium Hydroxide (Milk Of Magnesia 30 Ml Oral.Susp) 30 ml PO DAILY PRN PRN Reason: Constipation Melatonin (Melatonin 3 Mg Tablet) 6 mg PO BEDTIME PRN PRN Reason: Insomnia Neomycin/Polymyxin/Bacitracin (Neomy/Polymyx/Bacit/Ointment 14 Gm Tube) 1 gm TOPICAL BID [facility]; Protocol Last Admin: 01/18/24 10:29 Dose: Not Given Oxycodone HCl (Oxycodone Hcl Immed Release 5 Mg Tablet) 5 mg PO Q6H PRN PRN Reason: Pain, Moderate(Pain Scale 4-6) Last Admin: 01/17/24 06:24 Dose: 5 mg Pharmacy Consult (Consult Rx Vancomycin Dosing) 1 each MISCELLANE DAILY PRN PRN Reason: Consult order Senna (Sennosides 8.6 Mg Tablet) 17.2 mg PO BEDTIME PRN PRN Reason: Constipation Sodium Chloride (0.9 % Sodium Chloride Flush 3 Ml Syringe) 3 ml IVFLUSH [facility] Last Admin: 01/18/24 08:16 Dose: 3 ml Home Medications ?Medication ?Instructions ?Recorded ?Confirmed ?Last Taken ?Type naproxen sodium 220 mg tablet 440 mg PO DAILY PRN Pain, Mild 01/17/24 01/17/24 01/15/24 History (Carlos) Exam Height,Weight and Vital Signs: Height 5 ft 9 in Weight 171 lb Last Vital Signs Temp 97.7 F 01/18/24 14:10 Pulse 93 01/18/24 14:10 Resp 15 01/18/24 14:10 BP 147/88 H 01/18/24 14:10 Pulse Ox 97 01/18/24 14:10 O2 Del Method Room Air 01/18/24 14:10 Pertinent Lab Results Pertinent Lab Results: Laboratory Tests 01/16/24 01/17/24 01/17/24 16:23 04:38 08:09 WBC 11.7 H 11.7 H RBC 4.74 4.63 Hgb 13.9 L 13.4 L Hct 39.8 L 40.0 L MCV 84.0 86.4 MCH 29.3 28.9 MCHC 34.9 33.5 RDW 12.4 12.6 Plt Count 233 229 MPV 9.0 L 9.3 L Immature Gran % (Auto) 0.3 0.3 Neut % (Auto) 69.0 67.9 Lymph % (Auto) 21.8 20.6 Jefferson % (Auto) 6.7 8.6 Eos % (Auto) 1.9 2.2 Baso % (Auto) 0.3 0.4 Lymph # (Auto) 2.5 2.4 Jefferson # (Auto) 0.8 1.0 Eos # (Auto) 0.2 0.3 Baso # (Auto) 0.0 0.1 Abs Immat Gran (auto) 0.04 H 0.04 H Absolute Neuts (auto) 8.0 8.0 Absolute Nucleated RBC 0.000 0.000 Nucleated RBC % (auto) 0.0 0.0 ESR 7 Hold Purple Top Sodium 143 143 Potassium 3.8 4.0 Chloride 109 H 109 H Carbon Dioxide 22 23 Anion Gap 16 15 BUN 8 L 8 L Creatinine 0.67 0.81 Estim Creat Clear Calc 156.8 129.7 Estimated GFR > 60 > 60 Random Glucose 114 96 Calcium 9.3 8.7 D Total Bilirubin 0.2 AST 13 ALT 12 Alkaline Phosphatase 63 C-Reactive Protein 0.77 H Total Protein 6.3 L Albumin 3.7 Nasal Screen MRSA (PCR) POSITIVE A Nasal S. aureus Screen POSITIVE A Nasal MRSA/S.aureus Interp SEE NOTE Vancomycin Trough 01/18/24 06:56 WBC RBC Hgb Hct MCV MCH MCHC RDW Plt Count MPV Immature Gran % (Auto) Neut % (Auto) Lymph % (Auto) Jefferson % (Auto) Eos % (Auto) Baso % (Auto) Lymph # (Auto) Jefferson # (Auto) Eos # (Auto) Baso # (Auto) Abs Immat Gran (auto) Absolute Neuts (auto) Absolute Nucleated RBC Nucleated RBC % (auto) ESR Hold Purple Top SEE NOTE Sodium Potassium Chloride Carbon Dioxide Anion Gap BUN Creatinine 0.74 Estim Creat Clear Calc 141.9 Estimated GFR > 60 Random Glucose Calcium Total Bilirubin AST ALT Alkaline Phosphatase C-Reactive Protein Total Protein Albumin Nasal Screen MRSA (PCR) Nasal S. aureus Screen Nasal MRSA/S.aureus Interp Vancomycin Trough 8.1 L Airway Mallampati Class: II TM Dist: >3cm Neck ROM: Full Loose/Missing/Broken Teeth: No Assessment and Plan Assessment Anesthesia Assessment: Anesthesia Plan Discussed and Chart Reviewed Final Anesthetic Review Family History of Problems with Anesthesia: No History of Problems with Anesthesia: No NPO: Yes ASA Class: I and Emergency Final Preanesthetic Review: No Changes in Pt Med Stat, Meds/Allgs Chart Reviewed, Consent Obtained/Reviewed and Anes Risks/Benef Reviewed Patient Risk: Low Procedure Risk: Low Anesthetic Plan Anesthetic Plan: GA Disposition: Standard PACU
--- NOTE | 2024-01-18 16:54 | P.CONOP_ITS ---
History of Present Illness HPI Consult date: 01/17/24 Chief complaint: left hand cellulitis Narrative: The patient is a 33-year-old man who sustained an injury to his left hand putting it through some glass a couple months ago. He said the wound went on to heal well but he tends to pick at his wounds. Was picking at the wound on the dorsal aspect of his left hand and noticed that it began to get infected. Also tends to chew on his finger nails and noticed that he got increased redness pain and swelling around the left middle finger finger nail. He was seen in the emergency department and admitted to be placed on IV antibiotics for cellulitis. We also had him start warm salt water soaks with the middle finger. The patient reports that with the warmth middle finger soaks he began to successfully express purulence from the paronychial infection of the left middle finger. He feels like the pain and swelling is getting worse on the dorsal aspect of his left hand. 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 PMFSH Past Medical History Medical History (Updated 01/18/24 @ 16:59 by Nurys Izaguirre MD) Hx of gastroesophageal reflux (GERD) History of diverticulitis Surgical History Surgical History (Updated 01/18/24 @ 14:09 by Linda Oquendo RN) Hx of wisdom tooth extraction Hx of hand surgery History of back surgery Social History Social History Household Members: Significant Other Housing: Apartment Do you presently have visiting nurse or other home services: No Patient Tobacco Use Status: Current everyday Tobacco user e-Cigarette/Vaping Use: Currently Using Substance Use Type: Marijuana service: No Meds Allergies Allergy/AdvReac Type Severity Reaction Status Date / Time No Known Allergies Allergy Verified 01/16/24 15:22 Active Medications: Current Medications Acetaminophen (Acetaminophen 325 Mg Tablet) 975 mg PO Q6H PRN PRN Reason: mild pain, headache or fever Calcium Carbonate (Calcium Carbonate 750 Mg Tab.Chew) 750 mg PO Q4H PRN PRN Reason: Dyspepsia Last Admin: 01/17/24 17:25 Dose: 750 mg Hydromorphone HCl (Hydromorphone Hcl 1 Mg/Ml Syringe) 1 mg IVPUSH Q4H PRN; Protocol PRN Reason: Pain, Severe (Pain Scale 7-10) Last Admin: 01/18/24 13:28 Dose: 1 mg Vancomycin HCl 1,250 mg/ (Sodium Chloride) 250 mls @ 166.667 mls/hr IV Q12H [facility] Last Infusion: 01/18/24 09:54 Dose: Infused Piperacillin Sod/Tazobactam (Sod 3.375 gm/ Sodium Chloride) 50 mls @ 100 mls/hr IV Q6H [facility] Last Infusion: 01/18/24 12:09 Dose: Infused Magnesium Hydroxide (Milk Of Magnesia 30 Ml Oral.Susp) 30 ml PO DAILY PRN PRN Reason: Constipation Melatonin (Melatonin 3 Mg Tablet) 6 mg PO BEDTIME PRN PRN Reason: Insomnia Neomycin/Polymyxin/Bacitracin (Neomy/Polymyx/Bacit/Ointment 14 Gm Tube) 1 gm TOPICAL BID [facility]; Protocol Last Admin: 01/18/24 10:29 Dose: Not Given Oxycodone HCl (Oxycodone Hcl Immed Release 5 Mg Tablet) 5 mg PO Q6H PRN PRN Reason: Pain, Moderate(Pain Scale 4-6) Last Admin: 01/17/24 06:24 Dose: 5 mg Pharmacy Consult (Consult Rx Vancomycin Dosing) 1 each MISCELLANE DAILY PRN PRN Reason: Consult order Senna (Sennosides 8.6 Mg Tablet) 17.2 mg PO BEDTIME PRN PRN Reason: Constipation Sodium Chloride (0.9 % Sodium Chloride Flush 3 Ml Syringe) [facility] Last Admin: 01/18/24 08:16 Dose: 3 ml Home Medications ?Medication ?Instructions ?Recorded ?Confirmed ?Last Taken ?Type naproxen sodium 220 mg tablet 440 mg PO DAILY PRN Pain, Mild 01/17/24 01/17/24 01/15/24 History (Carlos) Physical Exam 2 Vital Signs: Vital Signs: Last Vital Signs Temp 97.7 F 01/18/24 14:10 Pulse 93 01/18/24 14:10 Resp 15 01/18/24 14:10 BP 147/88 H 01/18/24 14:10 Pulse Ox 97 01/18/24 14:10 O2 Del Method Room Air 01/18/24 14:10 BMI result Body Mass Index 25.2 Const: General: cooperative, healthy appearing and no acute distress O rientation/consciousness: oriented to person and oriented to place HEENT: Head: Yes normocephalic and Yes atraumatic Eyes: EOM: EOMs intact bilaterally Resp: Effort & Inspection: normal respiratory effort and able to speak in complete sentences Cardio: Jugular venous distension: no JVD Skin: General skin exam: turgor normal Rashes: no rashes Neuro: General: oriented to person and oriented to place Extrem: Other: Evaluation of left Upper Extremity: He has a visible left middle finger paronychial infection. There is swelling and erythema and tenderness and there is some evidence of purulent drainage from beneath the eponychial fold. There is also some maceration of the skin distal to the D IP joint. He is completely nontender along the flexor tendon sheath, and the pad of the finger is also not tender though he says it is somewhat insensate. The pad is soft and I do not appreciate a felon type infection at this time. He can actively bring all of his fingers close to a weak fist and then back into extension with encouragement. He also has a focal area of erythema swelling and fluctuance over the dorsal central aspect of his left hand. The patient feels that this is worsening with time. The area is tender to palpation. Again he can flex and extend his fingers Radiographs: Psych: Appearance: grossly normal Affect: normal affect Attitude: c ooperative Results Labs 01/17/24 04:38 01/18/24 06:56 Labs: Abnormal lab results 01/18/24 Range/Units 06:56 Vancomycin Trough 8.1 L (10.0-20.0) mcg/mL H & H 01/16/24 01/17/24 Range/Units 16:23 04:38 Hgb 13.9 L 13.4 L (14.0-18.0) g/dl Hct 39.8 L 40.0 L (42.0-52.0) % All other labs normal. Assessment and Plan (1) Paronychia of finger: Qualifiers: Laterality: left Qualified Code(s): L03.012 - Cellulitis of left finger Status: Acute (2) Abscess of left hand: Status: Acute Plan Assessment and plan: 1. Left middle finger paronychial infection 2. Left dorsal hand abscess I educated the patient about these conditions. We discussed operative and non operative treatment options. As the dorsal abscess appears to be getting worse per patient, I am recommending operative intervention. The risks and benefits of operative treatment were discussed with the patient and the patient wishes to proceed with surgery. These risks include, but are not limited to risk of damage to blood vessels, nerves, tendons, infection, recurrence, incomplete relief of preoperative symptoms, persistent pain, possible need for further surgery and the risks associated with regional blocks and anesthesia. The plan is to take the patient to the operating room today for the following procedures: 1. Left middle finger paronychial infection I&D 2. Left dorsal hand abscess I and D All of the preoperative paperwork including the consent was filled out today. All the patient's questions were answered. He will then be admitted back to the floor to continue IV antibiotics. Anticipate possible discharge tomorrow if improvement. Procedures Date of Service Date of Service: 01/18/24
--- NOTE | 2024-01-18 16:59 | MHC.SHP ---
Pre-Procedural Eval Section A - 24 Hr Update-Section A only Date of Service: 01/18/24 The patient is an INPATIENT: Yes Changes since office visit: No Cold of Flu in the past 2 weeks, No New Medical Problems, No Changes in Medication and No Patient answered all questions The patient has been examined within 24 hours of the surgical procedure. The History & Physical has been completed within 30 days and I have reviewed it.: Yes Section B - Complete if H&P > 30 days Chief Complaint: left hand abscess, and middle finger paronychial i Details of Present Illness: Left hand abscess Allergies: Allergies Allergy/AdvReac Type Severity Reaction Status Date / Time No Known Allergies Allergy Verified 01/16/24 15:22 Exam Exam Comment: Patient seen on the floor and again at the bedside. Please see my consult note. Left dorsal hand abscess, and left middle finger paronychial infection Plan Diagnosis/Plan: Unchanged I have reviewed the history and physical and performed a pertinent physical examination on my patient. No changes have occurred unless specified. Time Spent With Patient Time: Total time managing care of this patient today ____ minutes.
--- NOTE | 2024-01-18 17:00 | W.PM.OPN ---
Operative Note Operative Note Date of Service: 01/18/24 Narrative: Operative Note Narrative: Preop diagnosis: 1. Left dorsal hand abscess 2. Left middle finger paronychial infection Postop diagnosis: 1. Left dorsal hand abscess 2. Left middle finger paronychial infection? 3. Left middle finger felon Procedure: 1. Left dorsal hand abscess I and D 2. Left middle finger paronychial infection I&D 3. Left middle finger I and D of felon Surgeon: Nurys Izaguirre MD Anesthesia: General Anesthesia Findings: Regarding his left middle finger there was some yellow purulent material that appeared to come from both beneath the nail extending back to the germinal matrix and eponychial fold, and also from a dorsal wound. There was some bogginess of the pad of the finger and thus I performed an I&D for a felon as well. Regarding the dorsal hand abscess there was thick yellow creamy purulence from the dorsal hand abscess as well. Cultures were taken from both sites. Implants: Iodoform gauze drain in dorsal hand abscess, another iodoform gauze drain in the pad of the left middle finger, and a 3rd iodoform gauze drain passed between the nail plate and the sterile matrix for iodoform gauze drains x3 Tourniquet time: 0 minutes EBL: 5.0 ml Specimen: Cultures taken from both the left middle finger paronychia him and separately from the the left dorsal hand abscess Drains: None Complications: None Disposition: Brought to the recovery room in stable condition Plan: Admit back to floor and continue antibiotics Pull drains x3 and dressing change tomorrow Daily wound care and dressing changes Check cultures. If discharged please teach daily dressing changes and wound care, and assure appropriate outpatient antibiotics Follow-up in in 5-7 days for wound check and to check cultures Indications: The patient is a 33 year old man with left dorsal hand abscess and middle finger paronychial infection . The risks and benefits of operative treatment, including but not limited to risk of damage to blood vessels, nerves, tendons, infection, recurrence, persistent pain or numbness, incomplete resolution of preoperative symptoms, or need for further surgery were discussed with the patient and they wished to proceed with surgery. Procedure: Once consent was obtained patient was brought back to the operating suite and placed in the operating table in a supine position. . Perioperative antibiotics and anesthesia was administered by the anesthesia team. A tourniquet was applied to the proximal aspect of the left upper extremity and the limb was prepped and draped in a standard surgical fashion. The tourniquet was not inflated. My attention was 1st turned to the left middle finger paronychial infection.? I used a [place] elevator to pass beneath the eponychial fold to assure release of any purulent fluid from this area.? The purulence appeared to have coalesced beneath a blister-like piece of thin skin over the dorsal aspect of the finger distal to the D IP joint. I made a rather transverse incision through this very thin blister-like piece of partial-thickness skin. There was creamy yellow purulence in this area and cultures were taken. Some of this thin partial-thickness area of skin was then debrided from the dorsal base of the nail plate using tenotomy scissors. I also passed the [place] elevator beneath the nail plate between the nail plate and the sterile matrix. This appears already to have been somewhat detached extending back to the germinal matrix. I copiously irrigated beneath the nail back to the germinal matrix and then the wound over the dorsal aspect of the finger using normal saline and an Angiocath of the 10 mL syringe. I did feel that there was some bogginess in the pad of the finger and was concerned about a possible extension of this infection creating a felon. I thus made a 1.5 cm longitudinal incision along the radial aspect of the finger at the distal phalanx level. This was made through the skin to the subcutaneous tissues. I then released the felon by taking a pair of iris scissors carefully across the pad to the opposite side of the pad releasing the fibrous connections for an adequate I and D of the felon. I then used an Angiocath to copiously irrigate the felon. A 2.5 cm dorsal longitudinal incision was centered over the left dorsal hand abscess which was essentially over the dorsal central aspect of his left hand. The incision was made through the skin the subcutaneous tissues using a 15. Blade. There was some thick yellow purulence and fibrinous exudate expressed from this abscess. Cultures were also taken from this area separate from the middle finger cultures. I used a hemostat to adequately debride and open up the abscess cavity. The dorsal hand wound was then copiously irrigated with normal saline. Once satisfied with our irrigation and debridement I placed a half-inch piece of iodoform gauze in the dorsal hand wound. A 2nd piece of iodoform gauze was placed into the felon, and a 3rd piece of iodoform gauze was placed beneath the nail plate to facilitate drainage. Hemostasis was obtained with a brief period of local pressure. I performed a digital block using some 0.5% ropivacaine, and then infiltrated proximal to the dorsal hand abscess all to provide some assistance with postop pain control. Sterile dressing was then applied. The patient appears to have tolerated the procedure well and with no complications. All digits were well vascularized conclusion of the case.
[2024-01-19] VITALS (7 sets, daily range): BP systolic 120–137; BP diastolic 63–83; PULSE 63–103; RESP 14–18; TEMP 36.2–36.7; O2SAT 97–99
[2024-01-19] MEDS: Piperacillin Sodium/Tazobactam 3.375 GM in 0.9 % Sodium Chloride 50 ML IV ×4 (01:33→19:30)
[2024-01-19 07:24] LABS: Creatinine Clr Calc Pharmacy 161.6; Estimated Glomerular Filt Rate > 60
[2024-01-19] MEDS: HYDROmorphone HCl 1 MG/ML SYRINGE IVPUSH ×4 (08:01→22:02)
[2024-01-19] MEDS: 0.9 % Sodium Chloride Flush 3 ML SYRINGE IVFLUSH ×3 (08:02→23:31)
[2024-01-19] MEDS: vancomycin HCL 1,250 MG in 0.9 % Sodium Chloride 250 ML 166.66 MG IV (08:02)
--- NOTE | 2024-01-19 09:14 | HO.POSTANES ---
Post Anesthesia Evaluation Post Anesthesia Evaluation Date of Service: 01/18/24 Vital Signs: Vital Signs Temp Pulse Resp BP Pulse Ox O2 Del Method 01/19/24 07:47 97.7 F 63 14 120/63 97 Room Air 01/19/24 04:00 97.7 F 90 16 120/67 97 Room Air 01/19/24 00:04 18 01/18/24 23:16 97.6 F 95 18 128/70 97 Room Air Anesthesia: General LMA Mental Status: Awake Pain Control: Satisfactory Nausea/Vomiting: None Hydration: Adequate Anesthesia-Related Issues: No Anes. Related Issues
--- NOTE | 2024-01-19 10:27 | PM.PNORT ---
Subjective Subjective Date of Service: 01/19/24 Interval history: POD 1 s/p Left hand I&D No overnight events Resting in bed with dressing intact Physical Exam Vital Signs: Vital Signs: Last Vital Signs Temp 97.7 F 01/19/24 07:47 Pulse 63 01/19/24 07:47 Resp 14 01/19/24 07:47 BP 120/63 01/19/24 07:47 Pulse Ox 97 01/19/24 07:47 O2 Del Method Room Air 01/19/24 07:47 O2 Flow Rate 6 01/18/24 18:04 BMI result Body Mass Index 25.2 Extrem: Other: Left hand incisions are clean dry and intact. There is mild swelling. No active drainage. Sensation intact. Procedures Date of Service Date of Service: 01/19/24 Progress Note: A&P Assessment and plan (1) Paronychia of finger: Status: Acute (2) Abscess of left hand: Status: Acute (3) Cellulitis of left middle finger: Status: Acute (4) Cellulitis of finger of left hand: Status: Acute Plan Packing [ulled-dry dressing applied -ok to perform daily dry dressings Cultures pending Continue IV abx Time Spent With Patient Time: Total time managing care of this patient today ____ minutes. Quality Stroke Does the patient have a stroke diagnosis?: No VTE Prior VTE?: No VTE Risk Level:: Medical - moderate - high VTE Device Contraindication: Treatment Not Indicated VTE Drug Contraindication: Treatment Not Indicated
--- NOTE | 2024-01-19 10:39 | P.PNIM_ITS ---
Subjective Subjective Date of Service: 01/19/24 Interval History: s/p i and d yesterday, feels better pain is fairly well controlled Physical Exam 2 Vital Signs: Vital Signs: Last Vital Signs Temp 97.7 F 01/19/24 07:47 Pulse 63 01/19/24 07:47 Resp 14 01/19/24 07:47 BP 120/63 01/19/24 07:47 Pulse Ox 97 01/19/24 07:47 O2 Del Method Room Air 01/19/24 07:47 O2 Flow Rate 6 01/18/24 18:04 BMI result Body Mass Index 25.2 Const: Other: General: AO X 3, no acute distress Resp: CTA bilateral CVS: S1,S2,RRR GI: +BS, NT, no distention Skin: wound to hand dressing intact Neuro: motor grossly intact Psych: appropriate affect Objective Data Active Medications Acetaminophen (Acetaminophen 325 Mg Tablet) 975 mg PO Q6H PRN PRN Reason: mild pain, headache or fever Calcium Carbonate (Calcium Carbonate 750 Mg Tab.Chew) 750 mg PO Q4H PRN PRN Reason: Dyspepsia Last Admin: 01/17/24 17:25 Dose: 750 mg Documented By: HELDER Hydromorphone HCl (Hydromorphone Hcl 1 Mg/Ml Syringe) 1 mg IVPUSH Q4H PRN; Protocol PRN Reason: Pain, Severe (Pain Scale 7-10) Last Admin: 01/19/24 08:01 Dose: 1 mg Documented By: AFSHIN Vancomycin HCl 1,250 mg/ (Sodium Chloride) 250 mls @ 166.667 mls/hr IV Q12H [facility] Last Infusion: 01/19/24 10:01 Dose: Infused Documented By: AFSHIN Piperacillin Sod/Tazobactam (Sod 3.375 gm/ Sodium Chloride) 50 mls @ 100 mls/hr IV Q6H [facility] Last Infusion: 01/19/24 07:08 Dose: Infused Documented By: MAIRA Magnesium Hydroxide (Milk Of Magnesia 30 Ml Oral.Susp) 30 ml PO DAILY PRN PRN Reason: Constipation Melatonin (Melatonin 3 Mg Tablet) 6 mg PO BEDTIME PRN PRN Reason: Insomnia Neomycin/Polymyxin/Bacitracin (Neomy/Polymyx/Bacit/Ointment 14 Gm Tube) 1 gm TOPICAL BID [facility]; Protocol Last Admin: 01/19/24 09:30 Dose: Not Given Documented By: AFSHIN Non-Admin Reason: dressing changed by ELTON Oxycodone HCl (Oxycodone Hcl Immed Release 5 Mg Tablet) 5 mg PO Q6H PRN PRN Reason: Pain, Moderate(Pain Scale 4-6) Last Admin: 01/17/24 06:24 Dose: 5 mg Documented By: LORNA Pharmacy Consult (Consult Rx Vancomycin Dosing) 1 each MISCELLANE DAILY PRN PRN Reason: Consult order Senna (Sennosides 8.6 Mg Tablet) 17.2 mg PO BEDTIME PRN PRN Reason: Constipation Sodium Chloride (0.9 % Sodium Chloride Flush 3 Ml Syringe) 3 ml IVFLUSH QSHIFT [facility] Last Admin: 01/19/24 08:02 Dose: 3 ml Documented By: AFSHIN Labs 01/17/24 04:38 01/19/24 05:52 Labs: Laboratory Results - last 24 hr 01/19/24 05:52 Hold Purple Top SEE NOTE Estim Creat Clear Calc 161.6 Estimated GFR > 60 Microbiology Microbiology Results: Microbiology 01/18/24 Unknown Gram Stain - Final Hand - Abscess 01/18/24 17:23 Gram Stain - Final Finger Left Middle 01/16/24 19:41 Blood Culture - Preliminary Blood - Venous No growth after 48 hours. 01/16/24 18:51 Blood Culture - Preliminary Blood - Venous No growth after 48 hours. Assessment and Plan (1) Paronychia of finger: Status: Acute Plan 33 years old man admitted with: Left 3rd finger paronychia associated with abscess and cellulitis, cultures negative. +MRSA and Staph screen in nose -Continue Zosyn and Vanco -s/p ID 01/17, cultures pending, overall better -IV Abx for 1 more day then PO dvt prophylax: low risk,ambulate . need for inpatient: IV Abx for cellulitis and abscess and need for surgical drainage Quality Stroke Does the patient have a stroke diagnosis?: No VTE Prior VTE?: No VTE Risk Level:: Medical - moderate - high VTE Device Contraindication: Treatment Not Indicated VTE Drug Contraindication: Treatment Not Indicated
[2024-01-19 11:01] LABS: MANUAL DIFF FLAG NO
[2024-01-19 11:16] LABS: Basophils Percent Auto 0.2 % (0-2); Hematocrit 39.8 % (42.0-52.0); Hemoglobin 13.5 g/dl (14.0-18.0); Imm Gran Abs Auto 0.06 X10*3/uL (0.00-0.03); Imm Gran Pct Auto 0.4 % (0.0-0.4); Lymphocytes Percent Auto 6.2 % (20-40); Mean Corpuscular HGB Conc 33.9 g/dl (31.0-36.0); Mean Corpuscular Hemoglobin 29.2 pg (27.0-33.0); Mean Platelet Volume 9.5 fL (9.4-12.4); Monocytes Percent Auto 6.2 % (2-11); Neutrophils Absolute Auto 14.5 x10*3/uL (2.0-8.3); Platelet Count 256 X10*3/uL (160-400); Red Blood Count 4.63 X10*6/uL (4.60-5.80); Red Cell Distribution Width 12.3 % (11.0-16.0); White Blood Count 16.7 X10*3/uL (4.8-10.8)
[2024-01-19 11:20] LABS: Anion Gap 16 (12-20); Blood Urea Nitrogen 12 mg/dL (9-16); Calcium 8.9 mg/dL (8.4-10.2); Carbon Dioxide 21 mmol/L (22-29); Chloride 111 mmol/L (96-108); Glucose Random 92 mg/dL (60-115); Potassium 3.9 mmol/L (3.3-5.1); Sodium 144 mmol/L (135-145)
--- NOTE | 2024-01-19 13:57 | MHC.CM.PN ---
EMR reviewed. Per MD rounds patient is not medically cleared for dc, but will dc on PO abx when medically cleared. Patient would like to go to [facility] [place] wound clinic if ongoing wound care is needed.
[2024-01-19 20:12] LABS: Vancomycin Random 6.9 mcg/mL (15-20)
[2024-01-19] MEDS: vancomycin HCL 1,250 MG in 0.9 % Sodium Chloride 250 ML 166.67 MG IV (21:52)
[2024-01-20 00:03] VITALS: BP 125/79; PULSE 96; RESP 16; TEMP 36.7; O2SAT 98
[2024-01-20] MEDS: Piperacillin Sodium/Tazobactam 3.375 GM in 0.9 % Sodium Chloride 50 ML IV ×3 (01:04→12:34)
[2024-01-20] MEDS: HYDROmorphone HCl 1 MG/ML SYRINGE IVPUSH ×3 (02:00→12:34)
[2024-01-20 02:30] VITALS: RESP 18
[2024-01-20 04:00] VITALS: BP 124/62; PULSE 72; RESP 16; TEMP 36; O2SAT 98
[2024-01-20] MEDS: vancomycin HCL 1,250 MG in 0.9 % Sodium Chloride 250 ML 166.67 MG IV (05:35)
[2024-01-20 06:19] LABS: Hematocrit 36.7 % (42.0-52.0); Hemoglobin 12.5 g/dl (14.0-18.0); Mean Corpuscular HGB Conc 34.1 g/dl (31.0-36.0); Mean Corpuscular Hemoglobin 29.1 pg (27.0-33.0); Mean Corpuscular Volume 85.3 fL (80.0-98.0); Mean Platelet Volume 9.2 fL (9.4-12.4); Platelet Count 218 X10*3/uL (160-400); Red Cell Distribution Width 12.7 % (11.0-16.0); White Blood Count 13.1 X10*3/uL (4.8-10.8)
[2024-01-20 06:35] LABS: Creatinine Clr Calc Pharmacy 145.9; Estimated Glomerular Filt Rate > 60
[2024-01-20] MEDS: NeoMY/Polymyx/Bacit/Ointment 14 GM Tube TOPICAL (07:30)
[2024-01-20] MEDS: 0.9 % Sodium Chloride Flush 3 ML SYRINGE IVFLUSH (07:31)
[2024-01-20 07:37] VITALS: BP 119/73; PULSE 56; RESP 14; TEMP 36; O2SAT 98
--- NOTE | 2024-01-20 09:53 | PM.PNORT ---
Subjective Subjective Date of Service: 01/20/24 Interval history: POD 2 s/p Left hand I&D No overnight events Resting in bed with dressing intact Physical Exam Vital Signs: Vital Signs: Last Vital Signs Temp 96.8 F 01/20/24 07:37 Pulse 56 01/20/24 07:37 Resp 14 01/20/24 07:37 BP 119/73 01/20/24 07:37 Pulse Ox 98 01/20/24 07:37 O2 Del Method Room Air 01/20/24 07:37 O2 Flow Rate 6 01/18/24 18:04 BMI result Body Mass Index 25.2 Extrem: Other: Left hand incisions are clean dry and intact. There is mild swelling. No active drainage. Sensation intact. Procedures Date of Service Date of Service: 01/20/24 Progress Note: A&P Assessment and plan (1) Paronychia of finger: Status: Acute (2) Abscess of left hand: Status: Acute (3) Cellulitis of left middle finger: Status: Acute (4) Cellulitis of finger of left hand: Status: Acute Plan -ok to perform BID dressings---abx ointment with gauze Cultures MRSA ID consult for abx rec's f/u outpatient Time Spent With Patient Time: Total time managing care of this patient today ____ minutes. Quality Stroke Does the patient have a stroke diagnosis?: No VTE Prior VTE?: No VTE Risk Level:: Medical - moderate - high VTE Device Contraindication: Treatment Not Indicated VTE Drug Contraindication: Treatment Not Indicated
--- NOTE | 2024-01-20 10:25 | PM.DS ---
DS: Providers Provider Date of Service: 01/20/24 Date of admission: 01/16/24 22:50 Primary care physician: None Physician Consults: 01/16/24 22:56 Consult to Orthotics Routine Consulting Provider: Georges Moore Reason for consultation: Left finger paronychia assoc. w/ hand cellulitis Has provider been notified: Yes 01/17/24 07:28 Addiction Medicine Routine Consulting Provider: Addiction Covering Reason for consultation: drug use Has provider been notified: No 01/17/24 10:37 Consult to Orthopedics [place]ine [place]ing [place] [facility] [place] [facility] Reason for consultation: Hand/ perinechal infcetion Has provider been notified: No 01/17/24 11:03 Consult to Wound Care Routine Reason for consultation: Left hand cellulitis. 01/20/24 08:11 Consult to Infectious Diseases Routine Consulting [place] [facility] [place] Reason for consultation: MRSA hand infection -abx recs DS: Diagnosis Discharge Diagnosis (1) Paronychia of finger: Status: Acute (2) Abscess of left hand: Status: Acute (3) Cellulitis of left middle finger: Status: Acute (4) Cellulitis of finger of left hand: Status: Acute DS: Summary Hospital Course Hospital Course: admission hpi Chief Complaint: Left 3rd finger pain and swelling Gurdeep Acuña is a 33 years old man presents to the ED complaining of 3 days history of worsening swelling to his left 3rd finger associated with left hand swelling and pain. He does bite his nails and was picking a pimples to the back aspect of his left hand. Denies associated chills, fever or nausea. He had a similar episode about 10 years ago requiring IV antibiotics. The infection was related to MRSA. He did not report any headache, dizziness or generalized weakness. He did not report any acute cardiopulmonary, gastrointestinal or genitourinary symptoms. Denied alcohol abuse or illicit drug use. In the ED, he was found to have normal vital signs. Blood workup showed within leukocytosis of 11.7. CRP is elevated, 0.77. Hemoglobin and platelets are basically normal. There are no significant electrolyte imbalances. Renal function is normal as well as LFTs. Left hand x-ray showed soft tissue swelling around the left 3rd digit. ED tx: Morphine 8 mg IV (total) Jorden 50 mg IV, vancomycin 2 g IV, Zosyn 4.5 mg IV, acetaminophen 975 mg PO. Hospital course: Patient was admitted and given iv Abx with zosyn and vancomycin, systemic blood cultures were negative. He had I and D on 01/17 and culture is growing MRSA, overall healing well and will change to oral Doxycycline for 7 more days. Time Attestation Discharge Coordination Time (in mins): 40 Quality: Safe Use of Opioids Does Pt have an Active Cancer Diagnosis on the Problem List?: No Quality: Stroke Does the patient have a stroke diagnosis?: No Physical Exam Vital Signs: Vital Signs: Last Vital Signs Temp 96.8 F 01/20/24 07:37 Pulse 56 01/20/24 07:37 Resp 14 01/20/24 07:37 BP 119/73 01/20/24 07:37 Pulse Ox 98 01/20/24 07:37 O2 Del Method Room Air 01/20/24 07:37 O2 Flow Rate 6 01/18/24 18:04 BMI result Body Mass Index 25.2 DS: Data Data Completed and Pending Labs on day of discharge: Laboratory Results - last 24 hr 01/19/24 01/19/24 01/20/24 05:52 19:05 05:49 WBC 16.7 H 13.1 H RBC 4.63 4.30 L Hgb 13.5 L 12.5 L Hct 39.8 L 36.7 L MCV 86.0 85.3 MCH 29.2 29.1 MCHC 33.9 34.1 RDW 12.3 12.7 Plt Count 256 218 MPV 9.5 9.2 L Immature Gran % (Auto) 0.4 Neut % (Auto) 87.0 H Lymph % (Auto) 6.2 L [place] % (Auto) 6.2 Eos % (Auto) 0.0 Baso % (Auto) 0.2 Lymph # (Auto) 1.0 L [place] # (Auto) 1.0 Eos # (Auto) 0.0 Baso # (Auto) 0.0 Abs Immat Gran (auto) 0.06 H Absolute Neuts (auto) 14.5 H Absolute Nucleated RBC 0.000 0.000 Nucleated RBC % (auto) 0.0 0.0 Sodium 144 Potassium 3.9 Chloride 111 H Carbon Dioxide 21 L Anion Gap 16 BUN 12 Creatinine 0.65 0.72 Estim Creat Clear Calc 161.6 145.9 Estimated GFR > 60 > 60 Random Glucose 92 Calcium 8.9 Random Vancomycin 6.9 L Preliminary micro results at discharge 01/16/24 19:41 Blood Culture - Preliminary Blood - Venous No growth after 48 hours. 01/16/24 18:51 Blood Culture - Preliminary Blood - Venous No growth after 48 hours. Discharge Plan Discharge Anticipated Discharge Date/Time: 01/20/24 10:39 Patient Disposition: Home, Self-Care Discharge Diagnosis: Cellulitis and abscess of the finger Referrals: Physician,None [Primary Care Provider] - 1 Week Discharge Medications: New doxycycline hyclate 100 mg tablet 100 mg PO BID 14 Days Qty: 28 0RF Continued naproxen sodium [Aleve] 220 mg Tablet 440 mg PO DAILY PRN (Reason: Pain, Mild) Diet: Advance to usual diet Activity on Discharge: As tolerated Stand Alone Forms: Patient Portal Discharge page Print Language: Kiswahili Care Plan Goals: recovery from finger infection Health Concerns: cellulitis and abscess of the finger Plan of Treatment: take doxycycline 100 mg twice daily for 7 days, follow up with your pcp and the hand surgeon Assessment: see above
[2024-01-20 11:52] VITALS: BP 139/82; PULSE 88; RESP 14; TEMP 36.4; O2SAT 98
--- NOTE | 2024-01-20 13:01 | MHC.CM.PN ---
Patient medically cleared for dc home self care. Per MD no referral to wound clinic indicated, patient will f/u w/ hand surgeon. Patient has own ride home.
== END 2024-01-20 15:33 | disposition home or self-care (01) | DRG 364 ==
LOC: HO.ED 22:24 → HO.EDOVER 23:00 → HO.S3 01-17 07:55
PROVIDERS: Internal Medicine; Nurse Practitioner Family; Orthopaedic Surgery; Admitting Provider Internal Medicine; Emergency Provider Emergency Medicine Emergency Medical Services; Visit Provider Internal Medicine
PROC: 0JBK0ZZ Excision of Left Hand Subcutaneous Tissue and Fascia, Open Approach (ICD-10-PCS; principal; 2024-01-18 16:00)
DX: L02.512 Cutaneous abscess of left hand (principal); F17.210 Nicotine dependence, cigarettes, uncomplicated; L03.012 Cellulitis of left finger; K21.9 Gastro-esophageal reflux disease without esophagitis; Z71.6 Tobacco abuse counseling; B95.62 Methicillin resistant Staphylococcus aureus infection as the cause of diseases classified elsewhere
CPT/HCPCS: 36415; 73120; 80048; 80053; 80202; 82565; 85025; 85027; 85652; 86140; 87040; 87070; 87077; 87186; 87205; 87640; 87641; 99285; J0131; J1100; J1170; J1885; J2250; J2270; J2371; J2405; J2543; J2704; J2795; J3010; J3370; J3371

== ENCOUNTER → 2024-01-16 22:50 | Outpatient (BNV) | payer MEDICAID, SELFPAY | PROVIDERS: Admitting Provider Internal Medicine; Emergency Provider Emergency Medicine Emergency Medical Services; Visit Provider Internal Medicine | DX: L03.012 Cellulitis of left finger (principal); L02.512 Cutaneous abscess of left hand | CPT/HCPCS: 99222; 99232; 99239 ==

== ENCOUNTER → 2024-01-16 22:50 | Outpatient (BNV) | payer MEDICAID, SELFPAY | PROVIDERS: Admitting Provider Internal Medicine; Emergency Provider Emergency Medicine Emergency Medical Services; Visit Provider Physician Assistant | DX: L03.012 Cellulitis of left finger (principal); L02.512 Cutaneous abscess of left hand | CPT/HCPCS: 10060; 26011; 99024; 99222; 99499 ==